=== PATIENT | male | born 1995 | race Caucasian/White ===

== ENCOUNTER 2019-05-13 05:59 | Emergency (ER) | payer SELFPAY ==
[~2019-05-13] VITALS: Ht 167.6 cm; Wt 72.6 kg
== END 2019-05-13 06:15 | disposition left against medical advice (07) ==
LOC: ER 05:59
DX: Z02.89 Encounter for other administrative examinations (principal); Z53.21 Procedure and treatment not carried out due to patient leaving prior to being seen by health care provider

== ENCOUNTER 2020-04-04 03:49 | Emergency (ER) | payer BC ==
[~2020-04-04] VITALS: Ht 172.7 cm; Wt 45.4 kg
[2020-04-04 05:49] VITALS: BP 124/86
== END 2020-04-04 06:13 | disposition left against medical advice (07) ==
LOC: ER 03:52
DX: F10.10 Alcohol abuse, uncomplicated (principal)